=== PATIENT | female | born 1930 | race Caucasian/White ===

== ENCOUNTER 2017-03-02 15:55 | Inpatient (IN) ==
[2017-03-02 17:51] LABS: Basophils % 0.4 %; Eosinophils # 0.2 K/mcL (0.0-0.6); Eosinophils % 2.9 %; Hematocrit 38.3 % (35.3-44.9); Hemoglobin 12.2 g/dL (11.5-15.4); Immature Granulocytes % 0.5 % (0-4); Lymphocytes # 1.8 K/mcL (0.6-4.6); Lymphocytes % 23.9 %; Mean Corpuscular HGB Conc 31.9 g/dL (31.6-35.5); Mean Corpuscular Hemoglobin 30.7 pg (28.0-33.3); Mean Corpuscular Volume 96.2 fL (83.0-100.0); Monocytes # 0.6 K/mcL (0.0-1.3); Monocytes % 8.6 %; Neutrophils # 4.7 K/mcL (1.6-8.9); Platelet Count 214 K/mcL (140-400); Red Blood Count 3.98 M/mcL (3.82-4.97); Red Cell Distribution Width 16.2 % (11.5-14.5); Segmented Neutrophils % 63.7 %
--- NOTE | 2017-03-02 18:01 | Emergency Department Note ---
Addendum entered and electronically signed by Merari Chandler DO 03/02/17 18:55: I spoke with hospitalist Jennie Jo who has accepted patient for admission. There is still pending left lower extremity ultrasound for which the night team will follow-up on. Original Note: Disposition Clinical Impression: CHF exacerbation Qualifiers: Congestive heart failure type: unspecified congestive heart failure type Qualified Code(s): I50.9 - Heart failure, unspecified Disposition: Still a Patient Condition: Undetermined Referrals: Ky Shelton MD [Primary Care Provider] - Forms: ED Satisfaction Letter Time of Disposition: 18:49 General Adult HPI - General Chief complaint: ED Extremity Injury, Lower Stated complaint: left leg pain, nausea,OPAL Time Seen by Provider: 03/02/17 16:32 Source: patient Limitations: no limitations Nursing Notes Reviewed: Yes Vital Signs Reviewed: Yes - History of Present Illness HPI Narrative: Patient is an 86-year-old female who presents to [facility] ED with multiple complaints. States over the last week, she has had severe left lower extremity pain that goes from her posterior calf of the back of her leg. 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 States the pain in her legs were constant initially and now comes and goes. Denies any lower extremity swelling. Patient has also had worsening difficulty breathing over the last week. She has a history of congestive heart failure with a poor ejection fraction. States her shortness of breath is especially worse with laying down. Patient also has complaints of lower abdominal pain. States she had a surgery many years ago where they had to put her colon back together. She had been warned not to eat anything with seeds at the time and then she had some watermelon earlier this week which she attributes to causing her abdominal pain at this point. Patient denies any fever or chills. No nausea, vomiting. No problems with urination or bowel movements. Onset (ago): day(s) Location: chest, abdomen, left, lower extremity Pain Severity: moderate Pain Scale: 5 Quality: stabbing, sharp Consistency: intermittent Improves with: nothing Worsens with: nothing Associated symptoms: Reports: chest pain, cough, shortness of breath Treatments Prior to Arrival: none - Related Data Home Medications Medication Instructions Recorded Confirmed Allopurinol [Zyloprim 100 MG] 300 mg PO DAILY 12/07/15 03/02/17 Aspirin [Adult Low Dose Aspirin EC] 81 mg PO DAILY 12/07/15 03/02/17 Carvedilol [Coreg] 6.25 mg PO BID 12/07/15 03/02/17 Duloxetine HCl [Cymbalta] 60 mg PO DAILY 12/07/15 03/02/17 Furosemide [Lasix] 40 mg PO BID 12/07/15 03/02/17 Iron,Carbonyl [Feosol] 65 mg PO DAILY 12/07/15 03/02/17 Levothyroxine [Synthroid] 75 mcg PO DAILY 12/07/15 03/02/17 Losartan Potassium [Cozaar] 25 mg PO DAILY 12/07/15 03/02/17 Propylene Glycol/Peg 400 [Systane 1 drop OP TID 12/07/15 03/02/17 0.3-0.4% Eye Drops] Fluticasone Propionate Nasal 2 spray NS HS 02/06/17 03/02/17 [Flonase] Lactobacillus [Culturelle] 1 cap PO BID 02/06/17 03/02/17 Loratadine [Allergy Relief] 10 mg PO DAILY PRN 02/06/17 03/02/17 Omeprazole [PriLOSEC] 40 mg PO DAILY 02/06/17 03/02/17 Potassium Chloride [K-Tab ER] 20 meq PO BID 02/06/17 03/02/17 Vit A/Vit C/Vit E/Zinc/Copper 1 tab PO BID 02/06/17 03/02/17 [Preservision Areds Tablet] raNITIdine HCl [Ranitidine HCl] 150 mg PO BID PRN 02/06/17 03/02/17 Previous Rx's Medication Instructions Recorded Atorvastatin [Lipitor] 40 mg PO HS #30 tablet 02/07/16 Sucralfate [Carafate] 1 gm PO TID 30 Days 02/07/16 Allergies Allergy/AdvReac Type Severity Reaction Status Date / Time ciprofloxacin [From Cipro] Allergy Hives Verified 07/27/16 13:25 sulfamethoxazole Allergy Hives Verified 07/27/16 12:58 [From Bactrim] trimethoprim [From Bactrim] Allergy Hives Verified 07/27/16 12:58 All systems ED: reviewed and negative except as stated. Past Medical History - Past Medical History Attestation: Yes The following information was validated with the patient. Source: patient Medical history: Reports: arthritis, atrial fibrillation, cancer, cardiomyopathy , CHF, coronary artery disease, CVA, GERD, GI bleed, hypertension, malignancy, osteoporosis, renal disease, thyroid disease, venous stasis, valvular heart disease, other Surgical history: Reports: cancer surgery, cataract, cholecystectomy, colectomy , orthopedic, other, pacemaker/AICD, other Psychiatric history: Reports: anxiety, depression - Social History Smoking Status: Never smoker Smokeless Tobacco Status: No Alcohol use: Reports: none Drug use: Reports: none Physical Exam - General Limitations: no limitations General appearance: alert - Head Head exam: atraumatic, normocephalic, normal inspection - Eye Eye exam: Present: normal appearance, PERRL, EOMI - ENT ENT exam: normal exam, normal oropharynx, mucous membranes moist - Neck Neck exam: Present: normal inspection, full ROM, trachea midline - Chest Chest inspection: Present: normal inspection, symmetric chest wall rise - Respiratory Respiratory exam: Present: normal lung sounds bilaterally - Cardiovascular Cardiovascular exam: Present: regular rate, normal rhythm, normal heart sounds - Abdominal Exam Abdominal exam: Present: soft, tenderness, normal bowel sounds Abdominal tenderness: Present: suprapubic, moderate - Extremities Exam Extremities exam: Present: normal inspection, tenderness (LLE pain) - Back Exam Back exam: Present: normal inspection, full ROM. Absent: tenderness - Neurological Exam Neurological exam: Present: alert, oriented X3 - Psychiatric Psychiatric exam: Present: normal affect, normal mood - Skin Skin exam: Present: warm, dry, intact, normal color Course Course Narrative: Patient seen and examined. Does have multiple complaints so I am concerned about her worsening exertional dyspnea and orthopnea. She does have history of congestive heart failure and cardiomyopathy. We will do a cardiopulmonary workup. We will also get a d-dimer level to rule out any blood clots. Her abdomen is soft and there does not seem to be an acute abdomen. We will get some basic abdominal labs and a urine analysis. - Reevaluation(s) Reevaluation #1: Lab work shows elevated BNP of 2400. This is above her prior levels that had been up to 900 in the past. Her chest x-ray shows bilateral pleural effusions. We will go ahead and admit patient for CHF exacerbation. 40 of IV Lasix ordered. Patient's d-dimer level is elevated in the 700s. So this is negative for age adjusted d-dimer for PE, this does not rule out DVT. We will go ahead and order an ultrasound of the left lower extremity to rule out DVT. Patient has been signed out to oncoming night team. Time: 18:42 Vital Signs Temperature 97.4 F L 03/02/17 16:03 Pulse Rate 82 03/02/17 16:03 Respiratory Rate 18 03/02/17 16:03 Blood Pressure 117/72 03/02/17 16:03 O2 Sat by Pulse Oximetry 100 03/02/17 16:03 Temperature 97.4 F L 03/02/17 16:03 Pulse Rate 57 03/02/17 19:02 Respiratory Rate 16 03/02/17 19:02 Blood Pressure 128/99 03/02/17 19:02 O2 Sat by Pulse Oximetry 97 03/02/17 19:02 Oxygen Delivery Oxygen Delivery Room Air Medical Decision Making - Medical Records Medical records reviewed: Yes I reviewed the patient's medical records. - Lab Data Lab results reviewed: Yes I reviewed the patient's lab results. Result diagrams: 03/02/17 17:42 03/02/17 17:42 Lab Results 03/02/17 03/02/17 03/02/17 Range/Units 17:42 17:42 17:42 WBC 7.4 (4.3-11.1) K/mcL RBC 3.98 (3.82-4.97) M/mcL Hgb 12.2 (11.5-15.4) g/dL Hct 38.3 (35.3-44.9) % MCV 96.2 (83.0-100.0) fL MCH 30.7 (28.0-33.3) pg MCHC 31.9 (31.6-35.5) g/dL RDW 16.2 H (11.5-14.5) % Plt Count 214 (140-400) K/mcL MPV 10.0 (9.4-12.4) fL Immature Gran % 0.5 (0-4) % Seg Neutrophils % 63.7 % Lymphocytes % 23.9 % Monocytes % 8.6 % Eosinophils % 2.9 % Basophils % 0.4 % Neutrophils # 4.7 (1.6-8.9) K/mcL Lymphocytes # 1.8 (0.6-4.6) K/mcL Monocytes # 0.6 (0.0-1.3) K/mcL Eosinophils # 0.2 (0.0-0.6) K/mcL Basophils # 0.0 (0.0-0.2) K/mcL D-Dimer (0-500) ng/mLFEU Sodium 140 (136-145) mEq/L Potassium 4.2 (3.5-4.5) mEq/L Chloride 103 (98-109) mEq/L Carbon Dioxide 26 (19-29) mEq/L BUN 29 H (7-20) mg/dL Creatinine 1.45 H (0.57-1.11) mg/dL Est GFR ( Amer) 42 L (> 60) Est GFR (Non-Af Amer) 34 L (> 60) BUN/Creatinine Ratio 20 (6-26) Glucose 98 (70-99) mg/dL Calculated Osmolality 296 (280-300) Lactic Acid 1.5 (0.5-2.2) mmol/L Calcium 9.1 (8.6-10.8) mg/dL Total Bilirubin 1.2 (0.2-1.2) mg/dL Direct Bilirubin 0.6 H (0.0-0.5) mg/dL Indirect Bilirubin 0.6 (0.0-1.2) mg/dL AST 31 (5-34) Units/L ALT 23 (0-55) Units/L Alkaline Phosphatase 135 H (38-126) Units/L Creatine Kinase (29-168) Units/L Troponin I (0-0.03) ng/mL B-Natriuretic Peptide (0-100) pg/mL Serum Total Protein 7.3 (6.0-8.3) g/dL Albumin 3.7 (3.5-5.0) g/dL Globulin 3.6 H (2.4-3.5) g/dL Albumin/Globulin Ratio 1.0 L (1.1-2.2) Lipase 31 (8-78) Units/L 03/02/17 03/02/17 03/02/17 Range/Units 17:42 17:42 17:42 WBC (4.3-11.1) K/mcL RBC (3.82-4.97) M/mcL Hgb (11.5-15.4) g/dL Hct (35.3-44.9) % MCV (83.0-100.0) fL MCH (28.0-33.3) pg MCHC (31.6-35.5) g/dL RDW (11.5-14.5) % Plt Count (140-400) K/mcL MPV (9.4-12.4) fL Immature Gran % (0-4) % Seg Neutrophils % % Lymphocytes % % Monocytes % % Eosinophils % % Basophils % % Neutrophils # (1.6-8.9) K/mcL Lymphocytes # (0.6-4.6) K/mcL Monocytes # (0.0-1.3) K/mcL Eosinophils # (0.0-0.6) K/mcL Basophils # (0.0-0.2) K/mcL D-Dimer (0-500) ng/mLFEU Sodium (136-145) mEq/L Potassium (3.5-4.5) mEq/L Chloride (98-109) mEq/L Carbon Dioxide (19-29) mEq/L BUN (7-20) mg/dL Creatinine (0.57-1.11) mg/dL Est GFR ( Amer) (> 60) Est GFR (Non-Af Amer) (> 60) BUN/Creatinine Ratio (6-26) Glucose (70-99) mg/dL Calculated Osmolality (280-300) Lactic Acid (0.5-2.2) mmol/L Calcium (8.6-10.8) mg/dL Total Bilirubin (0.2-1.2) mg/dL Direct Bilirubin (0.0-0.5) mg/dL Indirect Bilirubin (0.0-1.2) mg/dL AST (5-34) Units/L ALT (0-55) Units/L Alkaline Phosphatase (38-126) Units/L Creatine Kinase 94 (29-168) Units/L Troponin I 0.03 (0-0.03) ng/mL B-Natriuretic Peptide 2405 H (0-100) pg/mL Serum Total Protein (6.0-8.3) g/dL Albumin (3.5-5.0) g/dL Globulin (2.4-3.5) g/dL Albumin/Globulin Ratio (1.1-2.2) Lipase (8-78) Units/L 03/02/17 Range/Units 17:42 WBC (4.3-11.1) K/mcL RBC (3.82-4.97) M/mcL Hgb (11.5-15.4) g/dL Hct (35.3-44.9) % MCV (83.0-100.0) fL MCH (28.0-33.3) pg MCHC (31.6-35.5) g/dL RDW (11.5-14.5) % Plt Count (140-400) K/mcL MPV (9.4-12.4) fL Immature Gran % (0-4) % Seg Neutrophils % % Lymphocytes % % Monocytes % % Eosinophils % % Basophils % % Neutrophils # (1.6-8.9) K/mcL Lymphocytes # (0.6-4.6) K/mcL Monocytes # (0.0-1.3) K/mcL Eosinophils # (0.0-0.6) K/mcL Basophils # (0.0-0.2) K/mcL D-Dimer 796 H (0-500) ng/mLFEU Sodium (136-145) mEq/L Potassium (3.5-4.5) mEq/L Chloride (98-109) mEq/L Carbon Dioxide (19-29) mEq/L BUN (7-20) mg/dL Creatinine (0.57-1.11) mg/dL Est GFR ( Amer) (> 60) Est GFR (Non-Af Amer) (> 60) BUN/Creatinine Ratio (6-26) Glucose (70-99) mg/dL Calculated Osmolality (280-300) Lactic Acid (0.5-2.2) mmol/L Calcium (8.6-10.8) mg/dL Total Bilirubin (0.2-1.2) mg/dL Direct Bilirubin (0.0-0.5) mg/dL Indirect Bilirubin (0.0-1.2) mg/dL AST (5-34) Units/L ALT (0-55) Units/L Alkaline Phosphatase (38-126) Units/L Creatine Kinase (29-168) Units/L Troponin I (0-0.03) ng/mL B-Natriuretic Peptide (0-100) pg/mL Serum Total Protein (6.0-8.3) g/dL Albumin (3.5-5.0) g/dL Globulin (2.4-3.5) g/dL Albumin/Globulin Ratio (1.1-2.2) Lipase (8-78) Units/L - Radiology Data Radiology results reviewed: Yes I reviewed the patient's radiology results. Chest X-Ray 03/02/17 16:50 IMPRESSION: 1. Small bilateral pleural effusions with bibasilar atelectasis. 2. Stable mild enlargement of the cardiac silhouette. D/ / John Arriaga MD / John Arriaga MD Interpreting Provider: John Arriaga MD - EKG Data EKG #1 EKG attestation: Yes I reviewed and interpreted this EKG. Attestation Statement - Attestation Attestation: I, Vivek Rios, examined this patient and my medical decision-making was reviewed with the [employer] ST[employer]PER/PA/Advanced Practice Nurse/Resident Physician. I agree with the documented findings, disposition and treatment plan as described except to the extent set forth below. 86-year-old female presents with concerns of shortness of breath and left lower extremity pain. Patient states she has soreness of breath with exertion, she is unable to lay flat at night, has a history of congestive heart failure and this feels similar to previous exacerbations. Patient reports pain to the medial aspect of the left lower extremity which has been present over the past 2 -3 days. She has no history of DVT or other venous thromboembolism. Initial evaluation reveals crackles to the bilateral basilar lungs. Laboratory evaluation shows significantly elevated BNP however she also has a mildly elevated d-dimer. The d-dimer is negative with age adjustments for PE however we will obtain ultrasound to rule out DVT. Patient admitted to the hospitalist who will follow the ultrasound results.
[2017-03-02 18:06] LABS: Albumin 3.7 g/dL (3.5-5.0); Bilirubin,Direct 0.6 mg/dL (0.0-0.5); Bilirubin,Indirect 0.6 mg/dL (0.0-1.2); Bilirubin,Total 1.2 mg/dL (0.2-1.2); Calcium 9.1 mg/dL (8.6-10.8); Globulin 3.6 g/dL (2.4-3.5); Potassium 4.2 mEq/L (3.5-4.5); Total Protein 7.3 g/dL (6.0-8.3)
[2017-03-02] MEDS ORDERED: Furosemide 40 MG/4 ML VIAL IVP ONE (18:38)
--- NOTE | 2017-03-02 20:11 | Internal Med History&Physical ---
Date of Encounter: 03/02/17 Time of Encounter: 20:00 Assessment and Plan (1) CHF exacerbation Current visit: Yes Status: Acute Assess: Patient presents with shortness of breath that she reports has been worsening over the past week. Patient denies lower extremity edema, but reports orthopnea. Patient has history of CHF with her last echocardiogram one year ago showing an ejection fraction of 20-25%. Patient currently takes 40 mg Lasix daily. On examination, patient has non-pitting, mild edema of lower extremities bilaterally that she states is much better than it usually is. Plan: IVP Lasix 40 mg BID daily ordered Monitor I&O Monitor daily weight 1500 Fluid restriction diet ordered Qualifiers: Congestive heart failure type: unspecified congestive heart failure type Qualified Code(s): I50.9 - Heart failure, unspecified (2) Shortness of breath Current visit: Yes Status: Acute Assess: Patient presents with complaint of shortness of breath that she reports has become worse over the past week. This is most likely due to acute exacerbation of CHF. Plan: IVP Lasix 40 mg BID daily ordered Monitor I&O Monitor daily weight 1500 Fluid restriction diet ordered Supplemental O2 ordered with titration if Spo2 <92% Continuous SpO2 monitoring Monitor patient and vital signs (3) Chest pain Current visit: Yes Status: Acute Assess: Patient presents with complaint of chest pain that is left sided and moves across chest. Patient states that she has chest pain occasionally on and off. Patient's last echocardiogram was over one year ago. Plan: EV echocardiogram ordered w/o contrast Continuous cardiac telemetry Supplemental O2 and continuous SpO2 monitoring ordered Continue aspirin therapy Qualifiers: Chest pain type: chest pain on breathing Qualified Code(s): R07.1 - Chest pain on breathing (4) Pain, lower extremity Current visit: Yes Status: Acute Assess: Patient reports pain in left lower extremity that has moved up to her thigh. Patient does not have a history of DVT/PE, but has risk factors based on atrial fibrillation, CAD, CVA, and hypertension. On examination, patient does not have swelling in left leg. Both legs are equal in size and patient state the pain in the left leg comes and goes. Plan: Doppler U/S of left leg ordered and shows no evidence of DVT Heparin 5,000 units SQ Q8 ordered as DVT prophylaxis Qualifiers: Laterality: left Qualified Code(s): M79.605 - Pain in left leg (5) Urinary urgency Current visit: Yes Status: Acute Assess: Patient states that she has been experiencing urinary burning, urgency, and frequency and that she has a history of UTIs with the last one being approximately six months ago. Plan: Urine cultures ordered Keflex 500 mg BID PO ordered (6) GERD (gastroesophageal reflux disease) Current visit: Yes Status: Chronic Assess: Patient presents with history of GERD. Patient reports she had EGD in the past year with widening of the esophagus due to GERD symptoms but she continues to experience the reflux. Plan: IVP Protonix 40 mg daily ordered IVP Zofran ordered PRN Qualifiers: Esophagitis presence: with esophagitis Qualified Code(s): K21.0 - Gastro- esophageal reflux disease with esophagitis (7) A-fib Current visit: Yes Status: Chronic Assess: Patient presents with history of atrial fibrillation. Patient is currently not on any anticoagulation besides low-dose aspirin therapy. Plan: Repeat EKG ordered Continue aspirin therapy Continuous cardiac telemetry ordered Qualifiers: Atrial fibrillation type: chronic Qualified Code(s): I48.2 - Chronic atrial fibrillation (8) Hypertension Current visit: Yes Status: Chronic Assess: Patient presents with history of chronic hypertension. Plan: Continue Cozaar Lipitor ordered Monitor patient and vital signs Qualifiers: Hypertension type: essential hypertension Qualified Code(s): I10 - Essential (primary) hypertension (9) DVT prophylaxis Current visit: Yes Status: Acute Assess: Patient to be placed on DVT prophylaxis due to inpatient protocol and current risk factors. Plan: Heparin 5,000 units SQ Q8 ordered Internal Medicine - H&P: HPI Chief complaint: SOB/Lower left leg pain Admitted From: Emergency Dept Plans for Post Hospital Care: Home History of present illness: Ms. Aviles is a 86 year old female presents from the ED with chief complaint of shortness of breath, left lower extremity pain, and intermittent chest pain that varies from left chest to across chest with occasional radiation to the neck and back. Patient states that she has become more short of breath over the past week. Mrs. Aviles has a history of congestive heart failure and an LVEF of 20-25% as confirmed by echocardiogram in January 2016. Patient denies any lower extremity swelling over the past week when comparing one leg to another. She states that she also has abdominal pain in the LLQ which may be due to her eating watermelon earlier this week which may have aggravated her diverticulosis. Mrs. Aviles states that she recently had a sleep study done at [facility] with the recommendation for home O2 which has not been completed yet. She reports having burning, urgency, and frequency with urination. She denies any recent illness, fever, chills, nausea, vomiting, diaphoresis, or generalized weakness. Patient has a history of colon cancer with partial bowel resection, arthritis, atrial fibrillation, cardiomyopathy, CHF, CAD, CVA, GERD, GI bleed, hypertension, osteoporosis, renal disease, thyroid disease, venous stasis, and valvular heart disease. Patient is currently not on anticoagulation for her atrial fibrillation except for 81 mg aspirin due to her history of falls. Patient is at high risk for PE/DVT based on her history of atrial fibrillation, CAD, CVA, HTN, and CHF. Patient is to be admitted as inpatient status with continuous cardiac telemetry, supplemental O2, D-dimer, ultrasound of the left lower extremity, CT of the chest, EV echocardiogram, and IV Lasix for edema of lower extremities. U/A will also be ordered based on patient's report of urinary burning, urgency, frequency, and patient's history of UTIs. Troponin is 0.03 and lactic acid is 1.5 on initial blood draw in ED. Will repeat these. Patient is falls precautions/bed rest with bedside commode/[id number] only status based on history of falls. Patient to be monitored closely. Past Med Surg Social Fam HX - Past Medical History Source: patient Medical history: arthritis, atrial fibrillation, cancer, cardiomyopathy, CHF, coronary artery disease, CVA, GERD, GI bleed, hypertension, malignancy, osteoporosis, renal disease, thyroid disease, venous stasis, valvular heart disease, other Psychiatric history: anxiety, depression - Past Surgical History Surgical History: cancer surgery, cataract, cholecystectomy, colectomy, orthopedic, other (Broke left ankle - pin placed, broke wrist but unsure of which one), pacemaker/AICD, other - Social History Smoking Status: Never smoker Smokeless Tobacco Status: No Alcohol use: none Drug use: none Occupational status: retired Current living situation: Home - Independent Activity Level: Uses cane/walker Recent Out of Country Travel Within the Last 8 Weeks: No Exposure or Possible Exposure to Illness During Travel: No - Family History Brother Adopted: No Race: Family Member Ethnicity: Non- Living Status: Age at : 60 Cause of : HD Hx Family Cardiac Disorders: Yes (HD) Hx Family GI Disorders: Yes Sister Race: Family Member Ethnicity: Non- Living Status: Age at : 60 Cause of : CHF Hx Family Cardiac Disorders: Yes (HD, CHF) Mother Race: Family Member Ethnicity: Non- Living Status: Age at : 67 Cause of : Colon cancer Hx Family Cancer: Yes (Colon) Father Race: Family Member Ethnicity: Non- Living Status: Age at : 65 Cause of : HI Hx Family Cardiac Disorders: Yes (HI) Internal Medicine - H&P: Meds Allopurinol [Zyloprim 100 MG] 300 mg PO DAILY 12/07/15 [History] Aspirin [Adult Low Dose Aspirin EC] 81 mg PO DAILY 12/07/15 [History] Carvedilol [Coreg] 6.25 mg PO BID 12/07/15 [History] Duloxetine HCl [Cymbalta] 60 mg PO DAILY 12/07/15 [History] Furosemide [Lasix] 40 mg PO BID 12/07/15 [History] Iron,Carbonyl [Feosol] 65 mg PO DAILY 12/07/15 [History] Levothyroxine [Synthroid] 75 mcg PO DAILY 12/07/15 [History] Losartan Potassium [Cozaar] 25 mg PO DAILY 12/07/15 [History] Propylene Glycol/Peg 400 [Systane 0.3-0.4% Eye Drops] 1 drop OP TID 12/07/15 [ History] Atorvastatin [Lipitor] 40 mg PO HS #30 tablet 02/07/16 [Rx] Sucralfate [Carafate] 1 gm PO TID 30 Days 02/07/16 [Rx] Fluticasone Propionate Nasal [Flonase] 2 spray NS HS 02/06/17 [History] Lactobacillus [Culturelle] 1 cap PO BID 02/06/17 [History] Loratadine [Allergy Relief] 10 mg PO DAILY PRN 02/06/17 [History] Omeprazole [PriLOSEC] 40 mg PO DAILY 02/06/17 [History] Potassium Chloride [K-Tab ER] 20 meq PO BID 02/06/17 [History] Vit A/Vit C/Vit E/Zinc/Copper [Preservision Areds Tablet] 1 tab PO BID 02/06/17 [History] raNITIdine HCl [Ranitidine HCl] 150 mg PO BID PRN 02/06/17 [History] Allergies ciprofloxacin [From Cipro] Allergy (Verified 07/27/16 13:25) Hives sulfamethoxazole [From Bactrim] Allergy (Verified 07/27/16 12:58) Hives trimethoprim [From Bactrim] Allergy (Verified 07/27/16 12:58) Hives All Systems PM: A 10-system review of systems was performed and is negative for pertinent findings except as documented above in the HPI. - Constitutional Constitutional: as per HPI, falls, weakness, no chills, no fever(s), no night sweats - EENT Eyes: no change in vision, no discharge, no pain, no photophobia Ears: no ear discharge, no ear pain, no tinnitus Nose, mouth and throat: no dysphagia, no nasal discharge, no neck pain, no sore throat - Breasts Breasts: as per HPI - Cardiovascular Cardiovascular ROS IM: as per HPI, chest pain, dyspnea, dyspnea on exertion, edema (Lower extremities), irregular heart rhythm - Respiratory Respiratory: as per HPI, cough, dyspnea, dyspnea on exertion, no wheezing, no excessive phlegm production - Gastrointestinal Gastrointestinal: as per HPI, abdominal pain, no diarrhea, no hematemesis, no hematochezia, no melena, no nausea, no vomiting - Genitourinary Genitourinary: as per HPI, difficulty urinating, urinary frequency, urinary urgency Menstruation: as per HPI, post menopausal - Musculoskeletal Musculoskeletal ROS IM: as per HPI, muscle weakness, no numbness, no tingling - Integumentary Integumentary IM: no rash, no unusual bruising - Neurological Neurological ROS: as per HPI, focal weakness, weakness - Psychiatric Psychiatric: as per HPI - Endocrine Endocrine IM: as per HPI - Hematologic/Lymphatic Hematologic/Lymphatic: no easy bruising - Allergic/Immunologic Allergic/Immunologic: as per HPI - Constitutional Vitals: Temp Pulse Resp BP Pulse Ox 97.4 F L 57 16 128/99 97 03/02/17 16:03 03/02/17 19:02 03/02/17 20:03 03/02/17 20:03 03/02/17 19:02 General appearance: Present: cooperative, A&O X 3, pleasant, no acute distress, obese, answers questions appropriately - Head Head exam: Present: atraumatic, normocephalic - Eye Eye exam: Present: PERRL, conjuntiva pink, sclera anicteric Pupils: Present: PERRL - ENT ENT exam: Present: normal exam, normal external ear exam - Neck Neck exam general surgery: Present: supple, trachea midline. Absent: lymphadenopathy - Respiratory Respiratory exam: Present: CTAB. Absent: accessory muscle use, rales, rhonchi, wheezes - Cardiovascular Cardiovascular exam: Present: irregular rhythm - GI/Abdominal GI/Abdominal exam: Present: normal bowel sounds, soft, tenderness (Left lower quadrant extending to hip) - Rectal Rectal exam: Present: deferred - Additional comments: exam deferred. - Extremities Exam Extremities exam: Present: calf tenderness (Left calf extending up to left outer thigh), pedal edema, warm, radial pulses palpable and symetrical. Absent : cyanotic - Back Exam Back exam: Present: normal inspection - Neurological Exam Neurological exam: Present: CN II-XII intact, oriented X3, no focal deficits. Absent: pronater drift, facial droop, speech deficit - Psychiatric Psychiatric exam: Present: normal affect, normal mood - Skin Skin exam: Present: dry, intact Internal Med - H&P Results - Labs CBC & Chem 7: 03/02/17 17:42 03/02/17 17:42 - EKG Data Prior EKG available for review: yes When compared to previous EKG: there is no significant change EKG comments: 03/02/17 20:57 EKG dated 07/27/16 shows electronic ventricular pacemaker with PVC. EKG dated 03/02/17 shows electronic ventricular pacemaker. - Diagnostic Studies Chest x-ray Additional comments: Impressions Chest X-Ray 03/02/17 16:50 IMPRESSION: 1. Small bilateral pleural effusions with bibasilar atelectasis. 2. Stable mild enlargement of the cardiac silhouette. D/ / John Arriaga MD / John Arriaga MD Interpreting Provider: John Arriaga MD
[2017-03-02] MEDS ORDERED: Ondansetron 4 MG/2 ML VIAL IVP PRN (21:31)
[2017-03-02] MEDS ORDERED: Naloxone 0.4 MG/ML INJ IVP PRN (21:31)
[2017-03-02] MEDS ORDERED: *HR* Morphine 2 MG/ML SYRINGE IVP PRN (21:31)
[2017-03-02] MEDS ORDERED: Loratadine 10 MG TABLET PO PRN (21:41)
[2017-03-02] MEDS ORDERED: Famotidine 20 MG TABLET PO PRN (21:41)
[2017-03-02 22:08] LABS: INR 1.4; Prothrombin Time 14.7 Seconds (9.4-12.1)
[2017-03-02 22:10] LABS: Activated Partial Thrombo Time 28.5 Seconds (26.0-36.0)
[2017-03-02 22:51] LABS: Bilirubin,Urine Negative (Negative); Blood,Urine Negative (Negative); Clarity,Urine Clear (Clear); Color,Urine Yellow (Yellow); Glucose,Urine (UA) Normal (Normal); Ketones,Urine Negative (Negative); Leukocyte Esterase,Urine Negative (Negative); Nitrite,Urine Negative (Negative); PH,Urine 6.5 pH Units (5.0-8.0); Protein,Urine Negative (Neg-Trace); Urobilinogen,Urine Normal (Normal)
--- NOTE | 2017-03-02 23:38 | Event Note ---
Date of Encounter: 03/02/17 Time of Encounter: 23:15 I examined this patient and my medical decision-making was reviewed with the SILVERING APPLICATOR/PA/Advanced Practice Nurse/Resident Physician. I agree with the documented findings, disposition and treatment plan as described except to the extent set forth below. 86-year-old female with a history of systolic CHF, ischemic cardiac myopathy status post a second defibrillator presented to the emergency department due to worsening shortness of breath with exertion and orthopnea. She also reports swelling in her legs. On exam, reduced breath sounds bilaterally at the bases. First and second heart sounds heard without any rubs or murmurs. EKG personally reviewed-paced rhythm. Chest x-ray personally reviewed-bilateral pleural effusions. Left-sided AICD/ pacemaker pleasant. Laboratory data reviewed. Assessment/plan: 1. Acute on chronic systolic CHF-admitted to the hospital to inpatient status. Expected to be in the hospital for at least 2 midnights. High risk due to risk of worsening respiratory failure, lethal arrhythmias. Expected discharge disposition is to home. Intravenous diuresis. Repeat echocardiogram. Strict input and output. Fluid restricted diet. Daily weights. Resume home medications. 2. Coronary artery disease 3. Ischemic cardiomyopathy status post AICD/pacemaker KRISTINE Danielson
[2017-03-03] MEDS: *HR* Heparin 5,000 UNIT/ML VIAL SQ SCH ×4 (00:18→23:44)
[2017-03-03 06:34] LABS: Albumin 3.6 g/dL (3.5-5.0); Albumin/Globulin Ratio 1.1 (1.1-2.2); Bilirubin,Total 1.3 mg/dL (0.2-1.2); Calcium 9.1 mg/dL (8.6-10.8); Chol/HDL Ratio 2.3 (0-4.9); Globulin 3.3 g/dL (2.4-3.5); Magnesium 1.9 mg/dL (1.6-2.6); Potassium 3.5 mEq/L (3.5-4.5); Total Protein 6.9 g/dL (6.0-8.3)
[2017-03-03 06:36] LABS: Basophils % 0.4 %; Eosinophils # 0.2 K/mcL (0.0-0.6); Eosinophils % 2.9 %; Hematocrit 37.1 % (35.3-44.9); Immature Granulocytes % 0.4 % (0-4); Lymphocytes # 1.5 K/mcL (0.6-4.6); Mean Corpuscular HGB Conc 32.3 g/dL (31.6-35.5); Mean Corpuscular Hemoglobin 31.3 pg (28.0-33.3); Mean Corpuscular Volume 96.6 fL (83.0-100.0); Mean Platelet Volume 10.5 fL (9.4-12.4); Monocytes # 0.8 K/mcL (0.0-1.3); Neutrophils # 4.7 K/mcL (1.6-8.9); Nucleated Red Blood Cells 0.3 /100 WBC (0); Platelet Count 202 K/mcL (140-400); Red Blood Count 3.84 M/mcL (3.82-4.97); Red Cell Distribution Width 16.6 % (11.5-14.5); Segmented Neutrophils % 64.3 %
[2017-03-03] MEDS ORDERED: Furosemide 40 MG TABLET PO SCH (09:00)
[2017-03-03] MEDS: Aspirin Enteric Coated 81 MG Tablet PO SCH (09:38)
[2017-03-03] MEDS: cephALEXin 500 MG CAPSULE PO SCH ×2 (09:38→23:44)
[2017-03-03] MEDS: Lactobacillus 1 EACH CAP.SPRINK PO SCH ×2 (09:38→23:44)
[2017-03-03] MEDS: Pantoprazole 40 MG VIAL IVP SCH (09:39)
[2017-03-03] MEDS: Furosemide 40 MG/4 ML VIAL IVP SCH ×2 (09:39→23:44)
[2017-03-03] MEDS: Artificial Tears SOLN 15 ML BOTTLE OP SCH ×2 (09:39→14:40)
--- NOTE | 2017-03-03 13:23 | Venous Imaging Report ---
LE Venous Duplex Patient Name:Mamie Aviles Order Number:[id number] Procedure Date:03/02/2017 Date:1Age:86 yrs Gender:Female Location:[facility] ED Room #: ER05 Manager Emergency:Karly Herndon RDCS Referring MD:Merari Chandler DO reservoir engineering consultant:Ky Shelton MD Reading MD:Aston Woodall MD Primary Indications:R/O DVT Secondary Indications: Impressions: Normal left lower extremity deep and superficial venous exam. Recommendations: Preliminary given to Pt RNJcaqui. Findings Venous Duplex Results: Left: Venous imaging of the lower extremity reveals full patency and normal vessel compressibility of the left distal iliac, left common femoral, left superficial femoral, left popliteal, left posterior tibial, left peroneal, left great saphenous and left lesser saphenous. Doppler signals in the evaluated veins were normal. Prior Study: No prior study available for comparison. Lower Extremity Venous Duplex Side Vein Compress Spontaneous Flow Augment Diameter (cm) Depth (cm) Left Distal Iliac Normal Yes Phasic Yes Left Common Femoral Normal Yes Phasic Yes Left Superficial Femoral Normal Yes Phasic Yes Left Popliteal Normal Yes Phasic Yes Left Posterior Tibial Normal Yes Phasic Yes Left Peroneal Normal Yes Phasic Yes Left Great Saphenous Normal Yes Phasic Yes Left Lesser Saphenous Normal Yes Phasic Yes Updated by Aston Woodall MD on 03/03/2017 1:16:50 PM electronically signed on 03/03/2017 1:18:44 PM with status of Final
--- NOTE | 2017-03-03 14:23 | Internal Med Progress Note ---
Date of Encounter: 03/03/17 Time of Encounter: 12:15 - Assessment and plan (1) CHF exacerbation Current Visit: Yes Status: Acute Assessment and plan: Recent with acute on chronic congestive heart failure. Being treated with IV Lasix. Clinically feeling better. Awaiting 2-D echocardiogram. Moderate risk for complications. Continue current management. Qualifiers: Congestive heart failure type: systolic Qualified Code(s): I50.23 - Acute on chronic systolic (congestive) heart failure (2) Chest pain Current Visit: Yes Status: Acute Assessment and plan: Improved. Troponins are at baseline. Continue aspirin, statin and beta tam. Will await results of 2-D echocardiogram Qualifiers: Chest pain type: chest pain on breathing Qualified Code(s): R07.1 - Chest pain on breathing (3) Chronic kidney disease, stage III (moderate) Current Visit: Yes Status: Chronic Assessment and plan: Renal function is stable and at baseline (4) Restless leg syndrome Current Visit: Yes Status: Chronic Assessment and plan: Patient recently diagnosed with restless leg syndrome. Was recommended O2 supplementation at bedtime. We will continue the same. Venous Doppler negative for any thrombosis. (5) A-fib Current Visit: Yes Status: Chronic Assessment and plan: Rate controlled. Patient is not on any anticoagulation. Follow up with cardiology as outpatient for further recommendations. Qualifiers: Atrial fibrillation type: chronic Qualified Code(s): I48.2 - Chronic atrial fibrillation (6) Nonischemic cardiomyopathy Current Visit: Yes Status: Acute Assessment and plan: Continue current medication regimen. Including aspirin, statin, beta tam, losartan and Lasix (7) Presence of combination internal cardiac defibrillator (ICD) and pacemaker Current Visit: No Status: Chronic - Subjective Interval history: Patient is feeling somewhat better today. She describes bilateral lower extremity pain especially with lying down but worse on the left. She had recently been diagnosed with restless leg syndrome, and sleep apnea based on a sleep study. She was advised to wear CPAP but did not tolerate it. Her shortness of breath is improving. Denies any chest pain at this time. - Constitutional Vitals: Temp Pulse Resp BP Pulse Ox 97.6 F 71 16 111/74 94 03/03/17 11:28 03/03/17 11:28 03/03/17 11:28 03/03/17 11:28 03/03/17 11:28 General appearance: Present: cooperative, mild distress, A&O X 3, pleasant, obese, answers questions appropriately - Neck Neck exam general surgery: Present: supple, trachea midline. Absent: lymphadenopathy - Respiratory Respiratory exam: Present: CTAB. Absent: accessory muscle use, rales, rhonchi, wheezes - Cardiovascular Cardiovascular exam: Present: RRR, +S1, +S2. Absent: diastolic murmur, gallop, rubs, systolic murmur - GI/Abdominal GI/Abdominal exam: Present: normal bowel sounds, soft, no peritoneal signs. Absent: distended, tenderness - Extremities Exam Extremities exam: Present: warm, radial pulses palpable and symetrical. Absent : calf tenderness, cyanotic, pedal edema - Back Exam Additional comments: Patient has tiny open wounds in the left lower back over her lumbar region. No vesicles. - Neurological Exam Neurological exam: Present: alert, oriented X3, no focal deficits. Absent: facial droop, speech deficit Internal Medicine: Result - Labs CBC & Chem 7: 03/03/17 05:52 03/03/17 05:52 Labs: Short CBC 03/03/17 Range/Units 05:52 WBC 7.4 (4.3-11.1) K/mcL Hgb 12.0 (11.5-15.4) g/dL Hct 37.1 (35.3-44.9) % Plt Count 202 (140-400) K/mcL Neutrophils # 4.7 (1.6-8.9) K/mcL BMP 03/03/17 05:52 Sodium 140 Potassium 3.5 Chloride 101 Carbon Dioxide 28 BUN 29 H Creatinine 1.43 H Glucose 106 H Calcium 9.1 Cardiac Enzymes 03/03/17 Range/Units 05:52 Troponin I 0.04 H* (0-0.03) ng/mL Liver Function 03/03/17 Range/Units 05:52 Total Bilirubin 1.3 H (0.2-1.2) mg/dL AST 30 (5-34) Units/L ALT 23 (0-55) Units/L Alkaline Phosphatase 129 H (38-126) Units/L Albumin 3.6 (3.5-5.0) g/dL - ABG Interpretation ABG results: PT/INR, D-dimer PT 14.7 Seconds (9.4-12.1) H 03/02/17 21:55 D-Dimer 920 ng/mLFEU (0-500) H 03/02/17 21:55 Consult Discharge Plan - Plan Referrals: Ky Shelton MD [Primary Care Provider] - (web request 03/03/17) - Attending Attestation This document has been at least partially created by [employer] recognition technology by Dr. Pickett. Errors in grammar, wording or other phrases may exist. If errors are found after the documentation is signed, they will be addressed individually in the addendum section of this document when appropriate.
[2017-03-03] MEDS: Acetaminophen 325 MG TABLET PO PRN (14:39)
[2017-03-03] MEDS: Fluticasone Propionate Nasal 50 MCG/SPRAY BOTTLE NS SCH (23:45)
[2017-03-04] MEDS: Artificial Tears SOLN 15 ML BOTTLE OP SCH ×3 (00:28→15:21)
[2017-03-04] MEDS: Furosemide 40 MG/4 ML VIAL IVP SCH (10:04)
[2017-03-04] MEDS: *HR* Heparin 5,000 UNIT/ML VIAL SQ SCH ×2 (10:04→15:20)
[2017-03-04] MEDS: Aspirin Enteric Coated 81 MG Tablet PO SCH (10:04)
[2017-03-04] MEDS: Lactobacillus 1 EACH CAP.SPRINK PO SCH ×2 (10:05→20:26)
[2017-03-04] MEDS: Pantoprazole 40 MG VIAL IVP SCH (10:06)
--- NOTE | 2017-03-04 10:38 | Internal Med Progress Note ---
Date of Encounter: 03/04/17 Time of Encounter: 09:25 - Assessment and plan (1) CHF exacerbation Current Visit: Yes Status: Acute Assessment and plan: 2-D echocardiogram reviewed. No change in ejection fraction since last 2-D echocardiogram in 2016. Patient has EF of 25-30%. Her pulmonary hypertension has worsened with a RVSP of 72. Continue Lasix. Continue potassium supplementation. We will change Lasix to oral. Moderate risk for complications. Qualifiers: Congestive heart failure type: systolic Qualified Code(s): I50.23 - Acute on chronic systolic (congestive) heart failure (2) Chest pain Current Visit: Yes Status: Resolved Assessment and plan: On aspirin, statin and beta tam. Chest pain has improved now. Qualifiers: Chest pain type: chest pain on breathing Qualified Code(s): R07.1 - Chest pain on breathing (3) Chronic kidney disease, stage III (moderate) Current Visit: Yes Status: Chronic Assessment and plan: Stable renal function. (4) Restless leg syndrome Current Visit: Yes Status: Chronic Assessment and plan: Will start patient on pramipexole. Physical therapy has evaluated patient. Recommend home health and physical therapy. Patient's daughter is requesting a reevaluation as patient has not been getting up from bed much since her admission. We will wait for reevaluation prior to discharge. (5) A-fib Current Visit: Yes Status: Chronic Qualifiers: Atrial fibrillation type: chronic Qualified Code(s): I48.2 - Chronic atrial fibrillation (6) Nonischemic cardiomyopathy Current Visit: Yes Status: Chronic Assessment and plan: Continue aspirin, statin, beta tam and Cozaar. (7) Presence of combination internal cardiac defibrillator (ICD) and pacemaker Current Visit: No Status: Chronic - Subjective Interval history: Patient lying in bed and appears comfortable. No respiratory distress. Continues to have some pain in her lower extremities when lying down especially at night. No chest pain. No fever chills or night sweats. - Constitutional Vitals: Temp Pulse Resp BP Pulse Ox 97.7 F 82 16 118/80 90 03/04/17 07:12 03/04/17 07:12 03/04/17 07:12 03/04/17 07:12 03/04/17 07:12 General appearance: Present: cooperative, mild distress, A&O X 3, pleasant, obese, answers questions appropriately - Neck Neck exam general surgery: Present: supple, trachea midline. Absent: lymphadenopathy - Respiratory Respiratory exam: Present: CTAB. Absent: accessory muscle use, rales, rhonchi, wheezes - Cardiovascular Cardiovascular exam: Present: RRR, +S1, +S2. Absent: diastolic murmur, gallop, rubs, systolic murmur - GI/Abdominal GI/Abdominal exam: Present: normal bowel sounds, soft, no peritoneal signs. Absent: distended, tenderness - Extremities Exam Extremities exam: Present: pedal edema, warm, radial pulses palpable and symetrical. Absent: calf tenderness, cyanotic - Neurological Exam Neurological exam: Present: alert, oriented X3, no focal deficits. Absent: facial droop, speech deficit - Skin Skin exam: Present: dry, intact Additional comments: Healing small wounds in the left lower lumbar region. No vesicles seen Internal Medicine: Result - Labs CBC & Chem 7: 03/03/17 05:52 03/03/17 05:52 - ABG Interpretation ABG results: PT/INR, D-dimer PT 14.7 Seconds (9.4-12.1) H 03/02/17 21:55 D-Dimer 920 ng/mLFEU (0-500) H 03/02/17 21:55 Consult Discharge Plan - Plan Referrals: Ky Shelton MD [Primary Care Provider] - (web request 03/03/17) - Attending Attestation This document has been at least partially created by [employer] recognition technology by Dr. Pickett. Errors in grammar, wording or other phrases may exist. If errors are found after the documentation is signed, they will be addressed individually in the addendum section of this document when appropriate.
[2017-03-04] MEDS: Acetaminophen 325 MG TABLET PO PRN ×2 (10:39→20:25)
[2017-03-04] MEDS: *HR* HYDROcodone/Acet 5/325 mg TABLET PO PRN (12:11)
[2017-03-04] MEDS: Furosemide 40 MG TABLET PO SCH (15:20)
[2017-03-05] MEDS: *HR* Heparin 5,000 UNIT/ML VIAL SQ SCH ×3 (00:26→16:33)
[2017-03-05] MEDS: Artificial Tears SOLN 15 ML BOTTLE OP SCH ×3 (00:27→16:34)
[2017-03-05] MEDS: Fluticasone Propionate Nasal 50 MCG/SPRAY BOTTLE NS SCH (00:27)
[2017-03-05] MEDS: *HR* HYDROcodone/Acet 5/325 mg TABLET PO PRN ×2 (00:35→12:48)
--- NOTE | 2017-03-05 07:08 | Electrocardiograph Report ---
[address] [place] [address] Test Date: 2017-03-02 Pat Name: Mamie Aviles Department: 105 Room: 2A43 Gender: F Swim Instructor: : [id number] Requested By: Merari Chandler Order Number: [id number] Reading MD: Joe Urbina MD Measurements Intervals [place] Rate: 72 P: MT: 0 QRS: 241 QRSD: 160 T: 56 QT: 477 QTc: 501 Interpretive Statements ELECTRONIC VENTRICULAR PACEMAKER FUSION BEAT OR PVC Electronically Signed On 03-05-2017 7:06:42 EDT by Joe Urbina MD
[2017-03-05] MEDS: Furosemide 40 MG TABLET PO SCH ×2 (07:52→16:33)
[2017-03-05] MEDS: Lactobacillus 1 EACH CAP.SPRINK PO SCH (07:53)
[2017-03-05] MEDS: Aspirin Enteric Coated 81 MG Tablet PO SCH (07:53)
[2017-03-05] MEDS: Pantoprazole 40 MG VIAL IVP SCH (07:54)
[2017-03-05] MEDS: Acetaminophen 325 MG TABLET PO PRN (09:11)
[2017-03-05 15:05] VITALS: BP 125/76
--- NOTE | 2017-03-05 15:42 | Discharge Summary ---
Date of Encounter: 03/05/17 Time of Encounter: 10:00 - Discharge Diagnosis (1) CHF exacerbation Priority: Primary Status: Acute Qualifiers: Congestive heart failure type: systolic Qualified Code(s): I50.23 - Acute on chronic systolic (congestive) heart failure (2) Chest pain Priority: Secondary Status: Resolved Qualifiers: Chest pain type: chest pain on breathing Qualified Code(s): R07.1 - Chest pain on breathing (3) Chronic kidney disease, stage III (moderate) Priority: Secondary Status: Chronic (4) Restless leg syndrome Priority: Secondary Status: Chronic (5) A-fib Priority: Secondary Status: Chronic Comments: Not on anticoagulation due to high fall risk Qualifiers: Atrial fibrillation type: chronic Qualified Code(s): I48.2 - Chronic atrial fibrillation (6) Nonischemic cardiomyopathy Priority: Secondary Status: Chronic (7) Presence of combination internal cardiac defibrillator (ICD) and pacemaker Priority: Secondary Status: Chronic - Discharge Medications Prescriptions: Pramipexole [Mirapex] 0.25 mg PO HS #30 tablet Home Medications: Allopurinol [Zyloprim 100 MG] 300 mg PO DAILY 12/07/15 [History] Aspirin [Adult Low Dose Aspirin EC] 81 mg PO DAILY 12/07/15 [History] Carvedilol [Coreg] 6.25 mg PO BID 12/07/15 [History] Duloxetine HCl [Cymbalta] 60 mg PO DAILY 12/07/15 [History] Furosemide [Lasix] 40 mg PO BID 12/07/15 [History] Iron,Carbonyl [Feosol] 65 mg PO DAILY 12/07/15 [History] Levothyroxine [Synthroid] 75 mcg PO DAILY 12/07/15 [History] Losartan Potassium [Cozaar] 25 mg PO DAILY 12/07/15 [History] Propylene Glycol/Peg 400 [Systane 0.3-0.4% Eye Drops] 1 drop OP TID 12/07/15 [ History] Atorvastatin [Lipitor] 40 mg PO HS #30 tablet 02/07/16 [Rx] Sucralfate [Carafate] 1 gm PO TID 30 Days 02/07/16 [Rx] Fluticasone Propionate Nasal [Flonase] 2 spray NS HS 02/06/17 [History] Lactobacillus [Culturelle] 1 cap PO BID 02/06/17 [History] Loratadine [Allergy Relief] 10 mg PO DAILY PRN 02/06/17 [History] Omeprazole [PriLOSEC] 40 mg PO DAILY 02/06/17 [History] Potassium Chloride [K-Tab ER] 20 meq PO BID 02/06/17 [History] Vit A/Vit C/Vit E/Zinc/Copper [Preservision Areds Tablet] 1 tab PO BID 02/06/17 [History] raNITIdine HCl [Ranitidine HCl] 150 mg PO BID PRN 02/06/17 [History] Pramipexole [Mirapex] 0.25 mg PO HS #30 tablet 03/05/17 [Rx] Allergies/Adverse Reactions: Allergies ciprofloxacin [From Cipro] Allergy (Verified 07/27/16 13:25) Hives sulfamethoxazole [From Bactrim] Allergy (Verified 07/27/16 12:58) Hives trimethoprim [From Bactrim] Allergy (Verified 07/27/16 12:58) Hives Date of admission: 03/03/17 00:31 Primary care physician: Ky Shelton MD Consults: 03/02/17 21:35 Consult to Occupational Therapy [CONS] Routine Comment: Evaluate, develop and implement POC Reason for Consult: Patient has history of falls r/t weakness Consult to Physical Therapy [CONS] Routine Comment: Evaluate, develop and implement POC Reason for Consult: Patient has history of falls r/t weakness Discharging clinician: Jose Pickett Anticipated date of discharge: 03/05/17 - Patient Status Disposition: Home Health Service Condition: Good Functional capacity at discharge: uses cane/walker Overall status at discharge: patient is progressing back to baseline - Discharge Instructions Instructions: Pacemaker (DC), Chest Pain (DC), Heart Failure (DC), Chronic Hypertension (DC) Follow Up With: Ky Shelton MD [Primary Care Provider] - 03/08/17 11:15 am (web request 07/10) Additional Instructions: Follow-up with cardiology in 1-2 weeks - Diet and Activity Activity: as per physical therapy Diet: low fat, low cholesterol, low salt diet Hospital course: Ms. Aviles is a 86 year old female with history of cardiomyopathy with an EF of 20-25% based on last 2-D echocardiogram in 2016, congestive heart failure, atrial fibrillation, coronary artery disease, hypertension, thyroid disease who presented to the ER with complaints of shortness of breath along with left lower extremity pain and intermittent chest pain. She was treated for acute exacerbation of CHF with intravenous Lasix. Her troponins were also trended. She underwent a 2-D echocardiogram and venous Doppler of her lower extremities. Venous Doppler of her lower extremities do not show any deep vein thrombosis. 2-D echocardiogram showed that the patient had left ventricle systolic dysfunction with EF of 25-30%. She also had worsening of her pulmonary hypertension with RVSP of 72. Patient also had been recently diagnosed with sleep apnea and restless leg syndrome. Given her pain in her lower extremities , she was started on treatment for restless leg syndrome with Mirapex. This seems to have helped with her symptoms and patient was able to sleep much better and her pain in her lower extremities has improved. She was evaluated by physical therapy and recommended home health which will be arranged for the patient. Presently she is feeling much better overall and is stable for discharge home. She will continue to take Lasix at 40 mg by mouth twice daily. She will follow up with the management of her chronic congestive heart failure. - Time Spent with Patient Total time spent providing and/or coordinating discharge services: Greater than 30 minutes (35 min) - Constitutional Vitals: Temp Pulse Resp BP Pulse Ox 97.7 F 64 15 125/76 98 03/05/17 15:03 03/05/17 15:03 03/05/17 15:03 03/05/17 15:03 03/05/17 15:03 General appearance: Present: cooperative, mild distress, A&O X 3, pleasant, obese, answers questions appropriately - Respiratory Respiratory exam: Present: CTAB. Absent: accessory muscle use, rales, rhonchi, wheezes - Cardiovascular Cardiovascular exam: Present: RRR, +S1, +S2. Absent: diastolic murmur, gallop, rubs, systolic murmur - GI/Abdominal GI/Abdominal exam: Present: normal bowel sounds, soft, no peritoneal signs. Absent: distended, tenderness - Neurological Exam Neurological exam: Present: alert, oriented X3, no focal deficits. Absent: facial droop, speech deficit - Skin Skin exam: Present: dry, intact - Attending Attestation This document has been at least partially created by Foxtrot recognition technology by Dr. Ameda. Errors in grammar, wording or other phrases may exist. If errors are found after the documentation is signed, they will be addressed individually in the addendum section of this document when appropriate.
--- NOTE | 2017-03-05 16:03 | Physician Discharge Referral ---
Home Health/Hosp Referral Info Transfer to: Home Health Provider in Charge Post Discharge: PCP - Diagnosis (1) CHF exacerbation Priority: Primary Status: Acute (2) Chest pain Priority: Secondary Status: Resolved (3) Chronic kidney disease, stage III (moderate) Priority: Secondary Status: Chronic (4) Restless leg syndrome Priority: Secondary Status: Chronic (5) A-fib Priority: Secondary Status: Chronic (6) Nonischemic cardiomyopathy Priority: Secondary Status: Chronic (7) Presence of combination internal cardiac defibrillator (ICD) and pacemaker Priority: Secondary Status: Chronic - Respiratory Orders Smoking Cessation: Smoking cessation has been advised. For more information, call the [place] Tobacco Quit Line at 0-352-VDHT-NOW. - Diet/Nutrition Diet/Nutrition Orders: Cardiac Diet/Nutrition: List: Fluid restriction to 1.5 L per day - Activity Activity Orders: Walker - Services Needed Following services are medically necessary services: Nursing, Home Health Aide, Physical Therapy, Occupational Therapy - Transfer Medications Prescriptions: Pramipexole [Mirapex] 0.25 mg PO HS #30 tablet Home Medications: Allopurinol [Zyloprim 100 MG] 300 mg PO DAILY 12/07/15 [History] Aspirin [Adult Low Dose Aspirin EC] 81 mg PO DAILY 12/07/15 [History] Carvedilol [Coreg] 6.25 mg PO BID 12/07/15 [History] Duloxetine HCl [Cymbalta] 60 mg PO DAILY 12/07/15 [History] Furosemide [Lasix] 40 mg PO BID 12/07/15 [History] Iron,Carbonyl [Feosol] 65 mg PO DAILY 12/07/15 [History] Levothyroxine [Synthroid] 75 mcg PO DAILY 12/07/15 [History] Losartan Potassium [Cozaar] 25 mg PO DAILY 12/07/15 [History] Propylene Glycol/Peg 400 [Systane 0.3-0.4% Eye Drops] 1 drop OP TID 12/07/15 [ History] Atorvastatin [Lipitor] 40 mg PO HS #30 tablet 02/07/16 [Rx] Sucralfate [Carafate] 1 gm PO TID 30 Days 02/07/16 [Rx] Fluticasone Propionate Nasal [Flonase] 2 spray NS HS 02/06/17 [History] Lactobacillus [Culturelle] 1 cap PO BID 02/06/17 [History] Loratadine [Allergy Relief] 10 mg PO DAILY PRN 02/06/17 [History] Omeprazole [PriLOSEC] 40 mg PO DAILY 02/06/17 [History] Potassium Chloride [K-Tab ER] 20 meq PO BID 02/06/17 [History] Vit A/Vit C/Vit E/Zinc/Copper [Preservision Areds Tablet] 1 tab PO BID 02/06/17 [History] raNITIdine HCl [Ranitidine HCl] 150 mg PO BID PRN 02/06/17 [History] Pramipexole [Mirapex] 0.25 mg PO HS #30 tablet 03/05/17 [Rx] Allergies/Adverse Reactions: Allergies ciprofloxacin [From Cipro] Allergy (Verified 07/27/16 13:25) Hives sulfamethoxazole [From Bactrim] Allergy (Verified 07/27/16 12:58) Hives trimethoprim [From Bactrim] Allergy (Verified 07/27/16 12:58) Hives Certification: Further, I certify that my clinical findings support that this patient is homebound (i.e. absences from home require considerable and taxing effort and are for medical reasons or anabaptist services or infrequently or short duration when for other reasons) because: Homebound Reason: Patient requires assistance of a person or device to safely leave home, Severity of cardiac or pulmonary status limits activity tolerance Attestation: My signature below is to certify that this patient is under my care and that I, or nurse practitioner, or a physician's health care assistant working with me, has a face-to -face encounter with this patient.
== END 2017-03-05 18:04 | disposition home health service (06) | DRG 291 ==
LOC: 2ANU 15:55 → EMEROO 15:55 → 2ANU 20:07
PROVIDERS: ADMIT Nurse Practitioner Family; ATTEND Internal Medicine